=== PATIENT | male | born 1960 | race Caucasian/White ===

== ENCOUNTER 2017-06-17 22:12 | Inpatient (IN) | payer MEDICAID, OTHER ==
[2017-06-17 23:27] LABS: ADD MAN DIFF? NO
[2017-06-17 23:29] LABS: WHITE BLOOD COUNT 6.2 10^3/ul (4.8-10.8)
[2017-06-17 23:29] LABS: BASOPHILS % 0.5 % (0.0-2.0); HEMATOCRIT 41.7 % (42.0-52.0); HEMOGLOBIN 14.3 g/dl (14.0-18.0); LYMPHOCYTES # 0.7 10^3/ul (0.8-2.9); LYMPHOCYTES % 10.5 % (15.0-51.0); MEAN CORPUSCULAR HEMOGLOBIN 33.3 pg (29.0-33.0); MEAN CORPUSCULAR HGB CONC 34.3 g/dl (32.0-37.0); MEAN PLATELET VOLUME 9.6 fl (7.4-10.4); MONOCYTE # 0.4 10^3/ul (0.3-0.9); NEUTROPHIL # 5.1 10^3/ul (1.6-7.5); NEUTROPHILS % 81.7 % (39.0-77.0); PLATELET COUNT 198 10^3/UL (140-415); RED CELL DISTRIBUTION WIDTH 12.5 % (11.5-14.5)
[2017-06-17] MEDS: SOD CHLORIDE 0.9% 500 ML IV (23:50)
[2017-06-18 00:05] LABS: ALANINE AMINOTRANSFERASE 35 IU/L (13-69); ALBUMIN 4.6 g/dl (3.3-4.9); ALBUMIN/GLOBULIN RATIO 1.64; ALKALINE PHOSPHATASE 75 IU/L (42-121); ASPARTATE AMINO TRANSFERASE 47 IU/L (15-46); BLOOD UREA NITROGEN 16 mg/dl (7-20); CALCIUM 8.9 mg/dl (8.4-10.2); CARBON DIOXIDE 26 mmol/L (21-31); CHLORIDE 104 mmol/L (97-110); CREATININE 0.96 mg/dl (0.61-1.24); GLUCOSE 120 mg/dl (70-220); SODIUM 143 mmol/L (135-144); TOTAL PROTEIN 7.4 g/dl (6.1-8.1)
[2017-06-18 00:16] LABS: B-TYPE NATRIURETIC PEPTIDE 208 PG/ML (0-125)
[2017-06-18 01:01] LABS: TROPONIN-I 0.726 ng/ml (0.00-0.12)
[2017-06-18 01:13] LABS: ANION GAP 17 (8-16); POTASSIUM 4.4 mmol/L (3.5-5.1)
[2017-06-18] MEDS: ASPIRIN 325 MG TAB PO (01:23)
[2017-06-18] MEDS ORDERED: DOCUSATE SODIUM 100 MG CAP PO (03:00)
[2017-06-18] MEDS ORDERED: ACETAMINOPHEN 325 MG TAB PO ×2 (03:00→20:30)
[2017-06-18] MEDS ORDERED: HEPARIN 1000 UNITS/ML 10 ML INJ IV (03:00)
[2017-06-18] MEDS ORDERED: NACL 0.9% 3 ML SYG IV (03:00)
[2017-06-18] MEDS ORDERED: morphine 2 MG INJ IV (03:00)
[2017-06-18] MEDS ORDERED: NITROGLYCERIN (SL) 0.4 MG TAB SL (03:00)
[2017-06-18] MEDS ORDERED: ONDANSETRON 4 MG INJ IV (03:00)
[2017-06-18] MEDS ORDERED: BISACODYL (EC) 5 MG TAB PO (03:00)
[2017-06-18 03:16] LABS: INR 0.94; PROTIME 12.7 Sec (11.9-14.9)
[2017-06-18 03:17] LABS: PARTIAL THROMBOPLASTIN TIME 28.2 Sec (25.0-35.0)
[2017-06-18] MEDS: SOD CHLORIDE 0.9% 1,000 ML IV ×3 (03:36→20:03)
[2017-06-18] MEDS: HEPARIN 1000 UNITS/ML 10 ML INJ IV (03:47)
[2017-06-18] MEDS: HEPARIN 25000 UNITS/250 ML 250 ML IV ×2 (03:57→14:23)
[2017-06-18] MEDS: METOPROLOL 25 MG TAB PO ×2 (05:17→08:30)
[2017-06-18 07:26] LABS: ADD MAN DIFF? NO
[2017-06-18 07:27] LABS: BASOPHILS % 0.7 % (0.0-2.0); EOSINOPHILS # 0.1 10^3/ul (0.0-0.5); EOSINOPHILS % 1.5 % (0.0-7.0); HEMATOCRIT 38.9 % (42.0-52.0); HEMOGLOBIN 13.3 g/dl (14.0-18.0); LYMPHOCYTES # 1.7 10^3/ul (0.8-2.9); MEAN CORPUSCULAR HEMOGLOBIN 33.2 pg (29.0-33.0); MEAN CORPUSCULAR HGB CONC 34.2 g/dl (32.0-37.0); MEAN PLATELET VOLUME 10.4 fl (7.4-10.4); MONOCYTE # 0.5 10^3/ul (0.3-0.9); MONOCYTES % 9.3 % (0.0-11.0); NEUTROPHILS % 56.1 % (39.0-77.0); PLATELET COUNT 178 10^3/UL (140-415); RED BLOOD COUNT 4.01 10^6/ul (4.70-6.10); RED CELL DISTRIBUTION WIDTH 12.7 % (11.5-14.5)
[2017-06-18 07:27] LABS: WHITE BLOOD COUNT 5.4 10^3/ul (4.8-10.8)
[2017-06-18 07:53] LABS: HEMOGLOBIN A1C 5.3 % (0-5.9)
[2017-06-18 08:04] LABS: CREATINE KINASE 794 IU/L (23-200)
[2017-06-18 08:13] LABS: ALANINE AMINOTRANSFERASE 39 IU/L (13-69); ALBUMIN 3.8 g/dl (3.3-4.9); ALBUMIN/GLOBULIN RATIO 1.46; ALKALINE PHOSPHATASE 90 IU/L (42-121); ANION GAP 15 (8-16); ASPARTATE AMINO TRANSFERASE 89 IU/L (15-46); BILIRUBIN,INDIRECT 0.1 mg/dl (0-1.1); BILIRUBIN,TOTAL 0.1 mg/dl (0.2-1.3); BLOOD UREA NITROGEN 14 mg/dl (7-20); CALCIUM 8.5 mg/dl (8.4-10.2); CARBON DIOXIDE 22 mmol/L (21-31); CHLORIDE 108 mmol/L (97-110); CHOL/HDL RATIO 2.5 RATIO; CHOLESTEROL 171 mg/dl (100-200); CREATININE 0.83 mg/dl (0.61-1.24); GLUCOSE 94 mg/dl (70-220); HDL CHOLESTEROL 68 mg/dl (28-71); LDL CHOLESTEROL,CALCULATED 90 mg/dl; MAGNESIUM 1.9 mg/dl (1.7-2.5); POTASSIUM 3.8 mmol/L (3.5-5.1); SODIUM 141 mmol/L (135-144); TOTAL PROTEIN 6.4 g/dl (6.1-8.1); TRIGLYCERIDES 67 mg/dl (0-149)
[2017-06-18 08:15] LABS: CK INDEX 7.7
[2017-06-18] MEDS: ASPIRIN 81 MG TAB PO (08:28)
[2017-06-18] MEDS: INFLUENZA VIRUS VACCINE 0.5 ML (DISPENSING) IM* (09:00)
[2017-06-18 14:09] LABS: PARTIAL THROMBOPLASTIN TIME 100.4 Sec (25.0-35.0)
[2017-06-18 15:56] LABS: CREATINE KINASE 750 IU/L (23-200)
[2017-06-18 16:09] LABS: CK INDEX 6.7
[2017-06-18] MEDS ORDERED: IODIXANOL LOCM 100 ML BTL ×2 (18:10→19:48)
[2017-06-18] MEDS ORDERED: LIDOCAINE 1% (MDV) 20 ML INJ ×2 (18:10→19:49)
[2017-06-18] MEDS ORDERED: VERAPAMIL 5 MG INJ (18:12)
[2017-06-18] MEDS ORDERED: NITROGLYCERIN (IC) 100 MCG/ML INJ (18:12)
[2017-06-18] MEDS ORDERED: FENTAnyl 50 MCG/ML VIAL (18:14)
[2017-06-18] MEDS ORDERED: MIDAZOLAM 1 MG/ML 2 ML INJ (18:14)
[2017-06-18] MEDS ORDERED: BIVALIRUDIN 250MG /NS 50 ML 50 ML IVPB (19:32)
[2017-06-18] MEDS ORDERED: TICAGRELOR 90 MG TABLET (19:32)
[2017-06-18] MEDS ORDERED: OXYCODONE/ACETAMINOPHEN (5/325) TAB PO (20:30)
[2017-06-18] MEDS: TICAGRELOR 90 MG TABLET PO (21:00)
[2017-06-18 22:45] LABS: PARTIAL THROMBOPLASTIN TIME 73.1 Sec (25.0-35.0)
[2017-06-18] MEDS ORDERED: ATROPINE 1 MG/10 ML SYRINGE (23:44)
[2017-06-19 05:16] LABS: ADD MAN DIFF? NO
[2017-06-19 05:19] LABS: BASOPHILS % 0.6 % (0.0-2.0); EOSINOPHILS # 0.1 10^3/ul (0.0-0.5); EOSINOPHILS % 1.6 % (0.0-7.0); HEMOGLOBIN 12.9 g/dl (14.0-18.0); LYMPHOCYTES # 1.3 10^3/ul (0.8-2.9); LYMPHOCYTES % 25.9 % (15.0-51.0); MEAN CORPUSCULAR HEMOGLOBIN 33.8 pg (29.0-33.0); MEAN CORPUSCULAR HGB CONC 34.9 g/dl (32.0-37.0); MEAN CORPUSCULAR VOLUME 96.9 fl (82.0-101.0); MEAN PLATELET VOLUME 9.7 fl (7.4-10.4); MONOCYTE # 0.4 10^3/ul (0.3-0.9); MONOCYTES % 8.2 % (0.0-11.0); NEUTROPHIL # 3.2 10^3/ul (1.6-7.5); NEUTROPHILS % 63.5 % (39.0-77.0); PLATELET COUNT 164 10^3/UL (140-415); RED BLOOD COUNT 3.82 10^6/ul (4.70-6.10); RED CELL DISTRIBUTION WIDTH 12.9 % (11.5-14.5)
[2017-06-19 05:56] LABS: FREE T4 (FREE THYROXINE) 0.92 ng/dl (0.64-1.79)
[2017-06-19 05:58] LABS: CK INDEX 3.9; CREATINE KINASE 525 IU/L (23-200)
[2017-06-19 05:59] LABS: B-TYPE NATRIURETIC PEPTIDE 1170 PG/ML (0-125)
[2017-06-19 06:05] LABS: ALANINE AMINOTRANSFERASE 54 IU/L (13-69); ALBUMIN 3.5 g/dl (3.3-4.9); ALBUMIN/GLOBULIN RATIO 1.34; ALKALINE PHOSPHATASE 70 IU/L (42-121); ANION GAP 14 (8-16); ASPARTATE AMINO TRANSFERASE 85 IU/L (15-46); BILIRUBIN,INDIRECT 0.3 mg/dl (0-1.1); BILIRUBIN,TOTAL 0.3 mg/dl (0.2-1.3); BLOOD UREA NITROGEN 10 mg/dl (7-20); CALCIUM 8.5 mg/dl (8.4-10.2); CARBON DIOXIDE 23 mmol/L (21-31); CHLORIDE 109 mmol/L (97-110); CHOL/HDL RATIO 2.6 RATIO; CHOLESTEROL 169 mg/dl (100-200); CREATININE 0.82 mg/dl (0.61-1.24); GLUCOSE 84 mg/dl (70-220); HDL CHOLESTEROL 63 mg/dl (28-71); LDL CHOLESTEROL,CALCULATED 87 mg/dl; MAGNESIUM 1.8 mg/dl (1.7-2.5); POTASSIUM 4.1 mmol/L (3.5-5.1); SODIUM 142 mmol/L (135-144); TOTAL PROTEIN 6.1 g/dl (6.1-8.1); TRIGLYCERIDES 97 mg/dl (0-149)
[2017-06-19 07:09] LABS: PHOSPHORUS 3.4 mg/dl (2.5-4.9)
[2017-06-19] MEDS: ASPIRIN 81 MG TAB PO (08:28)
[2017-06-19] MEDS: TICAGRELOR 90 MG TABLET PO ×2 (08:28→20:45)
[2017-06-19] MEDS: METOPROLOL (XL) 25 MG TAB PO (20:46)
[2017-06-19] MEDS: ATORVASTATIN 40 MG TAB PO (20:46)
[2017-06-20 05:37] LABS: ADD MAN DIFF? NO
[2017-06-20 05:39] LABS: BASOPHILS % 0.5 % (0.0-2.0); EOSINOPHILS # 0.2 10^3/ul (0.0-0.5); EOSINOPHILS % 3.3 % (0.0-7.0); HEMATOCRIT 41.8 % (42.0-52.0); HEMOGLOBIN 14.4 g/dl (14.0-18.0); LYMPHOCYTES # 1.4 10^3/ul (0.8-2.9); LYMPHOCYTES % 22.4 % (15.0-51.0); MEAN CORPUSCULAR HEMOGLOBIN 33.2 pg (29.0-33.0); MEAN CORPUSCULAR HGB CONC 34.4 g/dl (32.0-37.0); MEAN CORPUSCULAR VOLUME 96.3 fl (82.0-101.0); MEAN PLATELET VOLUME 9.8 fl (7.4-10.4); MONOCYTE # 0.6 10^3/ul (0.3-0.9); MONOCYTES % 9.1 % (0.0-11.0); NEUTROPHIL # 3.9 10^3/ul (1.6-7.5); NEUTROPHILS % 64.5 % (39.0-77.0); PLATELET COUNT 191 10^3/UL (140-415); RED BLOOD COUNT 4.34 10^6/ul (4.70-6.10); RED CELL DISTRIBUTION WIDTH 12.5 % (11.5-14.5)
[2017-06-20 06:00] LABS: CREATINE KINASE 187 IU/L (23-200)
[2017-06-20 06:02] LABS: ALANINE AMINOTRANSFERASE 51 IU/L (13-69); ALBUMIN 4.1 g/dl (3.3-4.9); ALBUMIN/GLOBULIN RATIO 1.36; ALKALINE PHOSPHATASE 77 IU/L (42-121); ANION GAP 14 (8-16); ASPARTATE AMINO TRANSFERASE 57 IU/L (15-46); BILIRUBIN,INDIRECT 0.3 mg/dl (0-1.1); BILIRUBIN,TOTAL 0.3 mg/dl (0.2-1.3); BLOOD UREA NITROGEN 14 mg/dl (7-20); CALCIUM 8.9 mg/dl (8.4-10.2); CARBON DIOXIDE 25 mmol/L (21-31); CHLORIDE 106 mmol/L (97-110); CREATININE 0.89 mg/dl (0.61-1.24); GLUCOSE 91 mg/dl (70-220); MAGNESIUM 1.8 mg/dl (1.7-2.5); POTASSIUM 4.1 mmol/L (3.5-5.1); SODIUM 141 mmol/L (135-144); TOTAL PROTEIN 7.1 g/dl (6.1-8.1)
[2017-06-20 06:09] LABS: B-TYPE NATRIURETIC PEPTIDE 909 PG/ML (0-125)
[2017-06-20 06:12] LABS: CK INDEX 1.8
[2017-06-20 06:16] LABS: CK-MB 3.45 ng/ml (0.0-2.4)
[2017-06-20] MEDS: ASPIRIN 81 MG TAB PO (09:47)
[2017-06-20] MEDS: TICAGRELOR 90 MG TABLET PO (09:48)
== END 2017-06-20 18:05 | disposition home or self-care (01) | DRG 247 ==
LOC: E/R 22:12 → TEL 06-18 01:52 → ICU 06-18 20:18
PROC: 4A023N7 Measurement of Cardiac Sampling and Pressure, Left Heart, Percutaneous Approach (ICD-10-PCS; principal; 2017-06-18 18:00)
PROC: 027034Z Dilation of Coronary Artery, One Artery with Drug-eluting Intraluminal Device, Percutaneous Approach (ICD-10-PCS; 2017-06-18 18:00)
PROC: B211YZZ Fluoroscopy of Multiple Coronary Arteries using Other Contrast (ICD-10-PCS; 2017-06-18 18:00)
DX: I21.4 Non-ST elevation (NSTEMI) myocardial infarction (principal); R00.1 Bradycardia, unspecified; E78.5 Hyperlipidemia, unspecified; F17.200 Nicotine dependence, unspecified, uncomplicated; Z79.82 Long term (current) use of aspirin
CPT/HCPCS: 36415; 71045; 80053; 80061; 82550; 82553; 83036; 83735; 83880; 84100; 84439; 84443; 84484; 85025; 85610; 85730; 87081; 93005; 93306; 93458; 99285-25